=== PATIENT | male | born 1985 | race Two or more races ===

== ENCOUNTER 2017-07-28 13:06 | Emergency (ER) | payer OTHER ==
[~2017-07-28] VITALS: Ht 170.2 cm; Wt 65.8 kg
[2017-07-28 13:07] VITALS: BP 139/97
== END 2017-07-28 14:30 | disposition home or self-care (01) ==
LOC: ED 13:06
DX: S61.235A Puncture wound without foreign body of left ring finger without damage to nail, initial encounter (principal); W45.8XXA Other foreign body or object entering through skin, initial encounter; Y93.89 Activity, other specified; Y99.8 Other external cause status; Y92.89 Other specified places as the place of occurrence of the external cause
CPT/HCPCS: 36415